=== PATIENT | female | born 1985 | race Caucasian/White ===

== ENCOUNTER → 2020-01-23 13:56 | Outpatient (BNVA) | payer OTHER, SELFPAY | PROVIDERS: Family Provider Family Medicine; PCP Nurse Practitioner; Visit Provider Specialist | DX: G47.33 Obstructive sleep apnea (adult) (pediatric) (principal); G43.909 Migraine, unspecified, not intractable, without status migrainosus | CPT/HCPCS: 99212 ==

== ENCOUNTER → 2020-05-29 15:36 | Outpatient (BNVA) | payer OTHER, SELFPAY | PROVIDERS: Family Provider Family Medicine; PCP Nurse Practitioner; Referring Provider Dermatology; Visit Provider Dermatology | DX: L40.9 Psoriasis, unspecified (principal); L72.0 Epidermal cyst | CPT/HCPCS: 99203 ==

== ENCOUNTER → 2021-01-06 11:04 | Outpatient (BNVA) | payer OTHER, SELFPAY | PROVIDERS: Family Provider Family Medicine; Visit Provider Specialist | DX: G43.909 Migraine, unspecified, not intractable, without status migrainosus (principal); G47.33 Obstructive sleep apnea (adult) (pediatric); G47.419 Narcolepsy without cataplexy | CPT/HCPCS: 99214 ==

== ENCOUNTER → 2021-04-13 08:03 | Outpatient (BNVA) | payer OTHER, SELFPAY | PROVIDERS: Family Provider Family Medicine; Visit Provider Specialist | DX: G47.419 Narcolepsy without cataplexy (principal); G47.33 Obstructive sleep apnea (adult) (pediatric); G43.019 Migraine without aura, intractable, without status migrainosus | CPT/HCPCS: 99213; 99214 ==

== ENCOUNTER 2021-09-18 14:06 | Outpatient (CLI) | payer OTHER, SELFPAY ==
--- NOTE | 2021-09-18 14:14 | MM_ITS ---
WS: [id number] BILATERAL DIGITAL SCREENING MAMMOGRAPHY WITH CAD CLINICAL INFORMATION: SCREENING HISTORY: Screening mammogram. No current complaints. COMPARISON: None. TECHNIQUE: Bilateral CC and MLO views. FINDINGS: Scattered fibroglandular densities bilaterally. No suspicious focal mass, asymmetry, calcifications, or architectural distortion. No evidence of malignancy. MM/[place] [id number] IMPRESSION: BI-RADS: 1-Negative FOLLOW UP: 1 Year Follow-up Recommend return to annual screening mammography.
== END 2021-09-18 14:07 | disposition home or self-care (01) ==
LOC: RADSHAW 14:12
PROVIDERS: PCP Registered Nurse; Visit Provider Registered Nurse
DX: Z12.31 Encounter for screening mammogram for malignant neoplasm of breast (principal)
CPT/HCPCS: 77067

== ENCOUNTER 2022-03-31 16:04 | Outpatient (CLI) | payer OTHER, SELFPAY ==
[2022-03-31 16:35] LABS: Basophils % 0.2 %; Eosinophils % 0.9 %; Hematocrit 30.8 % (37.0-47.0); Hemoglobin 8.8 g/dL (11.5-15.3); Lymphocytes # 1.8 10^3/uL (0.8-4.8); Lymphocytes % 42.2 %; Mean Corpuscular HGB Conc 28.6 g/dL (30.0-36.0); Mean Corpuscular Hemoglobin 20.6 pg (28.0-34.0); Mean Platelet Volume 10.9 fL (7.4-10.4); Monocytes # 0.3 10^3/uL (0.2-0.9); Monocytes % 6.2 %; Neutrophils # 2.13 10^3/uL (1.8-7.7); Neutrophils % 50.5 %; Nucleated Red Blood Cells % 0 %; Platelet Count 281 10^3/cmm (130-400); Red Blood Count 4.28 10^6/uL (4.1-5.3); Red Cell Distribution Width 17.5 % (12.1-15.1); White Blood Count 4.2 10^3/uL (4.0-10.0)
[2022-03-31 16:56] LABS: Alanine Aminotransferase 13 U/L (0-33); Albumin Level 4.2 g/dL (3.5-5.2); Alkaline Phosphatase 35 IU/L (35-105); Anion Gap 14.7 (5-19); Aspartate Amino Transferase 14 U/L (0-32); Blood Urea Nitrogen 7 mg/dL (6-20); Calcium 8.6 mg/dL (8.5-10.5); Carbon Dioxide 24 mmol/L (22-29); Chloride 105 mmol/L (98-107); Globulin 2.5 g/dL (1.3-4.6); Glomerular Filtration Rate 138.1 mL/min (90-130); Glucose 74 mg/dL (65-115); Osmolality Calculated 287 mOsm/kg (285-295); Potassium 3.7 mmol/L (3.5-5.1); Sodium 140 mmol/L (136-145); Total Bilirubin 0.2 mg/dL (0.15-1.2); Total Protein 6.7 g/dL (6.6-8.7)
[2022-03-31 17:04] LABS: HIV 1 & 2 Antibody Non-Reactive (Non-Reactiv); HIV 1 & 2 Antigen Non-Reactive (Non-Reactiv)
[2022-03-31 22:15] LABS: Hepatitis A Antibody IgM Non-Reactive (Nonreactive); Hepatitis B Core AB, Total Non-Reactive (Nonreactive); Hepatitis B Surface AB 46.3 (11.5-1000); Hepatitis B Surface Antigen Non-Reactive (Nonreactive); Hepatitis C Virus Antibody Non-Reactive (Nonreactive)
[2022-04-02 12:21] LABS: Quantiferon Mitogen >10.00 IU/mL; Quantiferon Nil 0.02 IU/mL; Quantiferon Plus TB1 <0.00 IU/mL; Quantiferon Plus TB2 <0.00 IU/mL; Quantiferon TB Gold NEGATIVE (NEGATIVE)
== END 2022-03-31 16:05 | disposition home or self-care (01) ==
PROVIDERS: PCP Registered Nurse; Visit Provider Dermatology
DX: L40.0 Psoriasis vulgaris (principal); L40.50 Arthropathic psoriasis, unspecified; Z79.899 Other long term (current) drug therapy
CPT/HCPCS: 36415; 80053; 85025; 86480; 86705; 86706; 86709; 86803; 87340; 87806

== ENCOUNTER 2022-08-24 04:56 | Outpatient (CLI) | payer OTHER, SELFPAY | END 2022-08-24 04:57 | disposition home or self-care (01) | LOC: SLEEP 08-25 04:58 | PROVIDERS: PCP Registered Nurse; Visit Provider Specialist | DX: G47.33 Obstructive sleep apnea (adult) (pediatric) (principal); G47.419 Narcolepsy without cataplexy | CPT/HCPCS: 95810 ==

== ENCOUNTER 2022-10-01 11:50 | Outpatient (CLI) | payer OTHER, SELFPAY ==
--- NOTE | 2022-10-01 12:12 | XR_ITS ---
WS: [id number] LUMBAR SPINE: 3 VIEWS TECHNIQUE: AP, lateral and L5-S1 spot. HISTORY: L SIDED SCIATICA COMPARISON: None available. Lumbar vertebra are normally aligned. Mild facet joint arthritis throughout the lumbar spine with hypertrophic osteophytes. No fractures. P edicles are all identified. SI joints are symmetric bilaterally. No soft tissue abnormalities. Surgical clips in the LEFT upper abdomen. XR/XR lumbar spine 2-3V* [id number] IMPRESSION: Mild diffuse lumbar spondylosis. No fracture.
== END 2022-10-01 11:51 | disposition home or self-care (01) ==
PROVIDERS: PCP Registered Nurse; Visit Provider Registered Nurse
DX: M54.32 Sciatica, left side (principal); M47.816 Spondylosis without myelopathy or radiculopathy, lumbar region
CPT/HCPCS: 72100

== ENCOUNTER 2022-12-03 13:21 | Outpatient (CLI) | payer OTHER, SELFPAY ==
--- NOTE | 2022-12-03 13:36 | MM_ITS ---
WS: [email or web address] BILATERAL 3D TOMOSYNTHESIS DIGITAL SCREENING MAMMOGRAPHY WITH CAD CLINICAL INFORMATION: SCREENING HISTORY: Screening mammogram. No current complaints. COMPARISON: 2021 TECHNIQUE: Bilateral CC and MLO views. FINDINGS: Scattered fibroglandular densities bilaterally. No suspicious focal mass, asymmetry, calcifications, or architectural distortion. 8 mm asymmetric density upper quadrant LEFT breast appears new from prev ious. This appears to be upper outer quadrant on the tomogram views. Recommend LEFT diagnostic mammog puneet spot compression views and ultrasound if persistent. MM/[place] [id number] IMPRESSION: BI-RADS: 0-Incomplete: Need additional imaging evaluation FOLLOW UP: Need Additional Imaging
== END 2022-12-03 13:22 | disposition home or self-care (01) ==
PROVIDERS: PCP Registered Nurse; Visit Provider Registered Nurse
DX: Z12.31 Encounter for screening mammogram for malignant neoplasm of breast (principal)
CPT/HCPCS: 77063; 77067

== ENCOUNTER 2022-12-24 09:50 | Outpatient (CLI) | payer OTHER, SELFPAY ==
--- NOTE | 2022-12-24 10:07 | MM_ITS ---
WS: [id number] BILATERAL 3D TOMOSYNTHESIS DIGITAL DIAGNOSTIC MAMMOGRAPHY WITH CAD CLINICAL INFORMATION: ABNORMAL MAMMO HISTORY: COMPARISON: 12/03/2022 and 09/18/2021 TECHNIQUE: Bilateral CC, MLO, and ML views. FINDINGS: Scattered fibroglandular densities bilaterally. Previously described asymmetric density in the LEFT b reast resolves today on the spot compression views consistent with overlapping tissue. No other suspi cious abnormalities. Recommend return to annual screening mammography. MM/[place] [id number] IMPRESSION: BI-RADS: 2-Benign FOLLOW UP: 1 Year Follow-up Recommend return to annual screening mammography.
== END 2022-12-24 09:51 | disposition home or self-care (01) ==
LOC: RAD 09:56
PROVIDERS: PCP Nurse Practitioner Family; Visit Provider Nurse Practitioner Family
DX: R92.8 Other abnormal and inconclusive findings on diagnostic imaging of breast (principal)
CPT/HCPCS: 77061; G0279

== ENCOUNTER 2023-01-07 08:42 | Outpatient (CLI) | payer OTHER, SELFPAY ==
--- NOTE | 2023-01-07 08:54 | MR_ITS ---
WS: [id number] MRI LUMBAR SPINE NONCONTRAST TECHNIQUE: Sagittal T1, T2 and STIR imaging. Axial T1 and T2 imaging. CLINICAL INFORMATION: PSORIATIC ARTHRITIS/CHRONIC L SIDED LOW BACK PAIN W/SCIATICA COMPARISON: None. FINDINGS: Mild lumbar curve. No acute compression. No high-grade central canal stenosis. Disc bulging worse L5- S1. L1-L2: Mild facet arthropathy. Spinal canal and foramen are patent. L2-L3: Mild facet arthropathy. L3-L4: Mild annular bulging. Slight effacement of ventral thecal sac. Mild facet arthropathy. Mild RI GHT and no significant LEFT foraminal narrowing. L4-L5: Mild annular bulging with slight effacement of ventral thecal sac. Slight narrowing of the LEF T subarticular recess. Mild facet arthropathy. Mild bilateral foraminal narrowing. L5-S1: Shallow central disc protrusion with impingement traversing S1 nerve roots bilaterally. Mild c entral canal stenosis. Moderate facet arthropathy. Mild RIGHT greater than LEFT foraminal narrowing. Visualized pelvic bony structures: Normal. Paravertebral soft tissues: Normal. MR/MR lumbar spine wo con* [id number] IMPRESSION: 1. Mild lumbar curve. No acute compression. 2. Shallow central disc protrusion L5-S1 impinges the traversing S1 nerve root s bilaterally with mild central canal stenosis. 3. Mild RIGHT greater than LEFT L5-S1 foraminal narrowing with slight impingem ent on the exiting L5 nerve roots. 4. Moderate facet arthropathy L4-L5 and L5-S1.
== END 2023-01-07 08:43 | disposition home or self-care (01) ==
PROVIDERS: PCP Nurse Practitioner Family; Visit Provider Nurse Practitioner Family
DX: L40.50 Arthropathic psoriasis, unspecified (principal); M54.42 Lumbago with sciatica, left side; G89.29 Other chronic pain; M43.8X6 Other specified deforming dorsopathies, lumbar region; M51.27 Other intervertebral disc displacement, lumbosacral region; M47.816 Spondylosis without myelopathy or radiculopathy, lumbar region
CPT/HCPCS: 72148

== ENCOUNTER 2023-04-11 15:44 | Outpatient (CLI) | payer OTHER, SELFPAY ==
--- NOTE | 2023-04-11 16:44 | XR_ITS ---
WS: [email or web address] XR foot LT 2V [id number] REASON FOR EXAM: M25.50 - Pain in unspecified joint FINDINGS: No fracture or focal bone lesion. No periosteal reaction or bone erosion. Joint spaces of the left foot are intact and well preserved. No soft tissue abnormality. IMPRESSION: No significant abnormality.
--- NOTE | 2023-04-11 16:44 | XR_ITS ---
WS: [email or web address] XR foot RT 2V [id number] REASON FOR EXAM: M25.50 - Pain in unspecified joint FINDINGS: No fracture or focal bone lesion. No periosteal reaction or bone erosion. Joint spaces of the right foot are intact and well preserved. No soft tissue abnormality. IMPRESSION: No significant abnormality.
--- NOTE | 2023-04-11 16:44 | XR_ITS ---
WS: [email or web address] XR hand RT 2V [id number] REASON FOR EXAM: L40.50 - Arthropathic psoriasis, unspecified FINDINGS: No fracture or focal bone lesion. No periosteal reaction or bone erosion. Joint spaces of the hand are intact and relatively well preserved. No soft tissue abnormality. IMPRESSION: No significant abnormality.
--- NOTE | 2023-04-11 16:44 | XR_ITS ---
WS: [email or web address] XR hand LT 2V [id number] REASON FOR EXAM: L40.50 - Arthropathic psoriasis, unspecified FINDINGS: No fracture or focal bone lesion. No periosteal reaction or bone erosion. The joint spaces of the left hand are intact and well preserved. No soft tissue abnormality. IMPRESSION: No significant abnormality.
== END 2023-04-11 15:45 | disposition home or self-care (01) ==
PROVIDERS: Absent Provider Nurse Practitioner Family; PCP Nurse Practitioner Family; Visit Provider Internal Medicine
DX: L40.50 Arthropathic psoriasis, unspecified (principal); M25.59 Pain in other specified joint
CPT/HCPCS: 73120; 73620

== ENCOUNTER 2023-04-12 15:04 | Outpatient (CLI) | payer OTHER, SELFPAY ==
[2023-04-12 16:23] LABS: Alanine Aminotransferase 13 U/L (0-33); Albumin Level 4.4 g/dL (3.5-5.2); Alkaline Phosphatase 33 U/L (35-105); Anion Gap 14.9 (5-19); Aspartate Amino Transferase 16 U/L (0-32); Blood Urea Nitrogen 6 mg/dL (6-20); Calcium 8.8 mg/dL (8.5-10.5); Carbon Dioxide 23 mmol/L (22-29); Chloride 104 mmol/L (98-107); Globulin 2.2 g/dL (1.3-4.6); Glomerular Filtration Rate 137.4 mL/min (90-130); Glucose 95 mg/dL (65-115); Osmolality Calculated 283 mOsm/kg (285-295); Potassium 3.9 mmol/L (3.5-5.1); Sodium 138 mmol/L (136-145); Total Bilirubin 0.2 mg/dL (0.15-1.2); Total Protein 6.6 g/dL (6.6-8.7)
[2023-04-12 16:29] LABS: Hepatitis B Surface Antigen Non-Reactive (Nonreactive)
[2023-04-12 16:31] LABS: Hepatitis C Virus Antibody Non-Reactive (Nonreactive)
[2023-04-12 16:39] LABS: Hepatitis B Core AB, Total Non-Reactive (Nonreactive); Hepatitis B Surface AB 57.3 (11.5-1000)
[2023-04-12 16:49] LABS: Basophils % 0.4 %; Eosinophils # 0.1 10^3/uL (0.0-0.8); Eosinophils % 2.4 %; Hematocrit 30.4 % (37.0-47.0); Hemoglobin 8.7 g/dL (11.5-15.3); Lymphocytes # 1.7 10^3/uL (0.8-4.8); Lymphocytes % 32.6 %; Mean Corpuscular HGB Conc 28.6 g/dL (30.0-36.0); Mean Corpuscular Hemoglobin 20.7 pg (28.0-34.0); Mean Corpuscular Volume 72.2 fl (81-99); Mean Platelet Volume 11.3 fL (7.4-10.4); Monocytes # 0.3 10^3/uL (0.2-0.9); Monocytes % 5.9 %; Neutrophils # 2.98 10^3/uL (1.8-7.7); Neutrophils % 58.5 %; Nucleated Red Blood Cells % 0 %; Platelet Count 263 10^3/cmm (130-400); Red Blood Count 4.21 10^6/uL (4.1-5.3); Red Cell Distribution Width 17.6 % (12.1-15.1); White Blood Count 5.1 10^3/uL (4.0-10.0)
[2023-04-12 16:52] LABS: Erythrocyte Sedimentation Rate 6 mm/hr (0-15)
[2023-04-13 12:55] LABS: CENTROMERE B ANTIBODY <1.0 NEG AI (<1.0 NEG); JO-1 ANTIBODY <1.0 NEG AI (<1.0 NEG); RNP ANTIBODY <1.0 NEG AI (<1.0 NEG); SCL-70 ANTIBODY <1.0 NEG AI (<1.0 NEG); SJOGREN'S ANTIBODY (SS-A) <1.0 NEG AI (<1.0 NEG); SM ANTIBODY <1.0 NEG AI (<1.0 NEG); SS-B <1.0 NEG AI (<1.0 NEG)
[2023-04-13 14:39] LABS: COMPLEMENT, TOTAL (CH50) >60 U/mL (31-60)
[2023-04-14 08:00] LABS: THYROID PEROXIDASE ANTIBODIES 3 IU/mL (<9)
[2023-04-14 11:25] LABS: ANA SCREEN, IFA POSITIVE (NEGATIVE); ANA TITER 1:40 titer; Anti-Nuclear AB Pattern #2 Nuclear, Speckled; Anti-Nuclear Antibody Titer #2 1:40 titer
[2023-04-14 12:41] LABS: COMPLEMENT COMPONENT C3C 139 mg/dL (83-193); COMPLEMENT COMPONENT C4C 12 mg/dL (15-57)
[2023-04-17 00:09] LABS: 14.3.3 ETA Protein <0.2 ng/mL (<0.2)
[2023-04-28 13:14] LABS: DNA AB (DS) CRITHIDIA,IFA NEGATIVE (NEGATIVE)
== END 2023-04-12 15:05 | disposition home or self-care (01) ==
LOC: LAB 15:08
PROVIDERS: PCP Nurse Practitioner Family; Referring Provider Nurse Practitioner Family; Visit Provider Internal Medicine
DX: L40.50 Arthropathic psoriasis, unspecified (principal); L40.0 Psoriasis vulgaris
CPT/HCPCS: 36415; 80053; 83520; 85025; 85651; 86140; 86160; 86162; 86235; 86255; 86376; 86704; 86706; 86803; 87340

== ENCOUNTER 2023-06-14 13:47 | Outpatient (CLI) | payer OTHER, SELFPAY ==
--- NOTE | 2023-06-14 13:54 | US_ITS ---
WS: [email or web address] US pelv w/transvag [id number] HISTORY: PELVIC PAIN IN FEMALE COMPARISON: None available. Uterus: 7.0 cm x 4.2 cm x 3.7 cm. Normal size retroverted uterus. No fibroid or mass identified. Endometrium: 0.3 cm. Normal. Right ovary: 2.0 cm x 1.6 cm x 2.3 cm. Normal size and vascularity, no cystic or solid masses. Left ovary: 3.5 cm x 3.2 cm x 2.4 cm. Simple LEFT ovarian cyst measures 3.1 x 2.9 x 2.5 cm. No solid component or septations. The adjacent LEFT ovary is normal. No free fluid in the cul-de-sac. IMPRESSION: 1. Simple LEFT ovarian cyst, (O-RADS 2). 2. Normal endometrium.
== END 2023-06-14 13:48 | disposition home or self-care (01) ==
LOC: RAD 13:49
PROVIDERS: PCP Nurse Practitioner Family; Visit Provider Nurse Practitioner Family
DX: R10.2 Pelvic and perineal pain (principal); N83.202 Unspecified ovarian cyst, left side
CPT/HCPCS: 76830; 76856

== ENCOUNTER 2023-08-11 07:07 | Outpatient (CLI) | payer OTHER, SELFPAY ==
[2023-08-16 10:20] LABS: Quantiferon Mitogen >10.00 IU/mL; Quantiferon Nil 0.01 IU/mL; Quantiferon TB Gold NEGATIVE (NEGATIVE)
== END 2023-08-11 07:08 | disposition home or self-care (01) ==
LOC: LAB 07:08
PROVIDERS: PCP Nurse Practitioner Family; Visit Provider Nurse Practitioner Family
DX: Z79.899 Other long term (current) drug therapy (principal)
CPT/HCPCS: 36415; 86480

== ENCOUNTER 2023-09-23 08:00 | Oncology outpatient (recurring) (ONCR) | payer OTHER, SELFPAY ==
--- OUTSIDE RECORDS SUMMARY | 2023-09-08 13:12 | XMS_ITS | Patient Health Record ---
Author Name Unknown Organization [facility] Address [address] [facility] [place] [address] Care Team Providers Care Development Specialist Name Role Phone Miguelito Austin Primary Care Provider ALLERGIES Allergen (clinical drug ingredient) Drug/Non Drug Allergy documented on EMR Reaction Allergy Type Onset Date Status Penicillin Unknown Drug Allergy Active RESULTS Component Value Reference Range Notes Vitamin B12 (B) 96795 Reviewed date:08/18/2023 05:40:13 PM Interpretation: Performing Lab: Notes/Report: Diagnosis Description: Iron deficiency anemia, unspecified [id number] 571 211-911 pg/mL Comprehensive Metabolic Pane l 74742 Reviewed date:08/18/2023 05:40:16 PM Interpretation: Performing Lab: Notes/Report: Diagnosis Description: Iron deficiency anemia, unspecified Glucose Serum 94 71-110 MG/DL Testing perfor med at [facility], [address] [place] [address], [place] [address]. CLIA ID#: [id number] BUN 10 7-21 MG/DL Creat .60 .51-1.17 MG/DL W-gdjppx-l-benzoquinone imine (NAPQI) is a metabolite of acetaminophen, NAPQI concentrations of apparoximately 10 mg/L correlation to toxic levels of acetaminophen demonstrates a greater than or equil to 10% change in results. NAPQI concentrations greater than this may lead to falsely depressed results for patient samples. Use of this assay is not recommended for patients undergoing treatment with phenindione, due to the potential for falsely depressed results. GFR 116.3 Calculation per formed from GFR calculator provided by the [employer]. Glomerular Filtration rate(GRF) is the best overall index of kidney function. Normal GFR varies according to age,sex, body size, and declines with age. The [employer] recommends using the CKD-EPI Creatinine Equation(2009) to estimate GFR. BUN/Creat Ratio 16.7 12.0-20.0 % Total Protein 6.8 5.8-8.0 G/DL Albumin 4.5 3.2-4.8 G/DL Globulin 2.2 2.3-3.5 G/DL Alb/Glob 2.0 0.8-2.2 Calcium 9.1 8.7-10.4 MG/DL Sodium 138 136-145 MMOL/L Potassium 3.9 3.5-5.1 MMOL/L Chloride 104 98-107 MMOL/L CO2 24.6 20.0-31.0 MMOL/L Anion Gap 13 5-15 Alk Phos 29 46-116 Bili Total .4 .3-1.2 MG/DL Use of this ass ay is not recommended for patients undergoing treatment with eltrombopag due to the potential for falsely elevated results. AST/SGOT 16 15-37 UNIT/L ALT/SGPT 14 12-78 UNIT/L Osmo Serum,Calculated 285 280-300 MOSM/KG CBC w\ Auto Diff [id number] Reviewed date:08/18/2023 05:40:24 PM Interpretation: Performing Lab: Notes/Report: Diagnosis Description: Iron deficiency anemia, unspecified WBC 5.1 4.5-11.0 X10'3 RBC 4.47 4.00-5.20 X10'6 Hgb 9.2 12.0-16.0 G/DL Hct 32.1 36.0-46.0 % MCV 71.8 80.0-100.0 FL MCH 20.6 27.0-31.0 PG MCHC 28.7 31.0-37.0 G/DL Platelet 268 150-400 X10'3 RDW-SD 46.7 35.0-49.0 FL RDW-CV 18.2 12.2-15.6 % MPV 12.0 9.2-12.0 FL Neutro Auto% 73.3 42.0-75.0 % Lymph Auto% 19.4 20.0-51.0 % Wright Auto% 5.3 1.7-9.3 % Eos Auto% 1.4 .0-6.0 % Baso Auto% 0.4 0.0-1.0 % Imm Gran% .2 .0-.4 % Neutro Abs 3.74 .80-7.70 Absolute Neutrophil Count 3740 Lymph Abs .99 .10-4.10 Wright Abs .27 .20-1.00 Eos Abs .07 .00-.40 Baso Abs .02 .00-.10 Imm Gran Abs .01 .00-.10 NRBC# .00 .00-.20 X10'3 NRBC% .00 .00-.20 /100 int act WBC's Occult Blood Immunoassay 822 74 Reviewed date:08/18/2023 05:50:52 PM Interpretation: Performing Lab: Notes/Report: Diagnosis Description: Iron deficiency anemia, unspecified Occult Blood Immunoassay Negative Control Occult Blood Valid Folate 57412 Reviewed date:08/18/2023 05:40:07 PM Interpretation: Performing Lab: Notes/Report: Diagnosis Description: Iron deficiency anemia, unspecified Folate 15.77 5.38-24.00 ng/mL Reference R chema: 5.38->24.00. Patient dosage up to or equal to 50 ng/ml of Biotin (vitamin B7) can potentially increase or decrease results of folate assay with a less than 10% bias. Concentrations of Biotin greater than 50ng/ml can potentially increase or decrease results of Folate assay with a greater than 10% bias. % Iron Saturation (Fe & TIBC )--65535,26013 Reviewed date:08/18/2023 05:40:10 PM Interpretation: Performing Lab: Notes/Report: Diagnosis Description: Iron deficiency anemia, unspecified Iron 15 50-170 MCG/DL Per Iron assay instruction for Use(IFU), patients treated with metal-binding drugs (e.g.deferoxamine) may have depressed iron values as chelated iron may not properly react in the iron assay. Testing was performed with this assay method. TIBC 432 250-450 NG/DL % Iron Saturation 3 20-50 % Immature PLT Fraction [id number] Reviewed date:08/18/2023 05:50:13 PM Interpretation: Performing Lab: Notes/Report: Immature PLT Fraction 7.7 1.6-4.9 % Platelet 268 150-400 X10'3 REASON FOR REFERRAL No Information MEDICATIONS Medication SIG (Take, Route, Frequency, Duration) Notes Start Date End Date Status Modafinil 200 MG 1 tablet in the morning Orally Once a day Active Vilazodone HCl 20 mg TAKE ONE-HALF TABLET BY MOUTH DAILY with food FOR THE first WEEK, AND THEN TAKE ONE TABLET BY MOUTH ONCE A DAY with food for 30 Active Norgestimate-Eth Estradiol 0.25-35 MG-MCG 1 tablet Orally Once a day Active Injectafer 750 MG/15ML as directed Intravenous weekly for 30 days Pt needs 3 doses of Injectafer infused weekly. 08/12/2023 Active Propranolol HCl 20 MG 1 tablet Orally Once a day Active SUMAtriptan Succinate 100 MG 1 tablet at least 2 hours between doses as needed Orally Twice a day Active Ixekizumab 80 MG/ML as directed Subcutaneous Not-Taking Baclofen 5 MG 1 tablet as needed Orally Once a day Active Calcipotriene 0.005 % 1 application Externally Twice a day Active Celecoxib 100 MG 1 capsule with food Orally Once a day Active Levocetirizine Dihydrochloride 5 MG 1 tablet in the evening Orally Once a day Active Meloxicam 15 MG 1 tablet Orally Once a day Active SOCIAL HISTORY Tobacco Use: Social History Observation Description Date Details (start date - stop date) Never Smoker NA - NA Sex Assigned At : Social History Observation Description Sex Assigned At Unknown Tobacco Use/Smoking Question Answer Notes Are you a nonsmoker Alcohol Screen (Audit-C) Question Answer Notes Did you have a drink containing alcohol in the p ast year? No Points 0 Interpretation Negative PROBLEMS Problem Type ICD Code Onset Dates Problem Status W/U Status Risk SNOMED Code Notes Problem Iron deficiency (E61.1) Active confirmed 54657103 Problem Moderate episode of recurrent major depressive disorder (F33.1) Active confirmed 643993866 Problem Microcytic anemia (D50.9) Active confirmed 689644394 Problem B12 deficiency (E53.8) Active confirmed 141635129 Problem Iron malabsorption (K90.9) Active confirmed 299170225 VITAL SIGNS Heart Rate 85 /min 08/12/2023 Temperature 99 degrees Fahrenheit 08/12/2023 Height-cm 165.1 cm 08/12/2023 Oximetry 99 % 08/12/2023 Blood pressure diastolic 60 mm Hg 08/12/2023 Weight-kg 68.76 kg 08/12/2023 Height 65 in 08/12/2023 Blood pressure systolic 110 mm Hg 08/12/2023 Weight 151.6 lbs 08/12/2023 BMI 25.22 kg/m2 08/12/2023 Encounters Encounter Location Date Provider Diagnosis [facility] [address] [place] [phone] 07/15/2023 [facility] [address] [place] [address] 08/25/2023 Miguelito Austin Microcytic anemia D50.9 [facility] [address] [place] [phone] 08/05/2023 Miguelito Austin Microcytic anemia D50.9 ; Iron deficiency E61.1 ; B12 deficiency E53.8 and Moderate episode of recurrent major depressive disorder F33.1 [facility] [address] [place] [phone] 08/12/2023 Miguelito Austin Iron malabsorption K90.9 [facility] [address] [place] [phone] 07/15/2023 Miguelito Austin Diarrhea, unspecifie d type R19.7 ASSESSMENTS Encounter Date Diagnosis Assessment Notes Treatment Notes Treatment Clinical Notes 07/15/2023 Diarrhea, unspecified type (ICD-10 - R19.7) This seems to be related to her biologic for her psoriasis. 08/05/2023 Iron deficiency (ICD-10 - E61.1) 08/05/2023 Microcytic anemia (ICD-10 - D50.9) 08/12/2023 Iron malabsorption (ICD-10 - K90.9) She needs IV iron. She is so profoundly low, she needs injectafer 750mg weekly times three. 08/25/2023 Microcytic anemia (ICD-10 - D50.9) 08/05/2023 B12 deficiency (ICD-10 - E53.8) 08/05/2023 Moderate episode of recurrent major depressive disorder (ICD-10 - F33.1) 08/05/2023 Other Venipuncture performed by Zabrina Carbajal. Left arm/hand. One attempt. Pt tolerated well, bleeding controlled with light dressing. Lab sent to [facility] via director regulatory agency. PLAN OF TREATMENT Next Appt Details Provider Name:Miguelito Austin, 09/23/2023 09:00:00 AM, [address] [place] [address], [phone], Insurance Providers Payer Name Payer Address Payer Phone Subscriber Number Group Number Insured Name Patient Relationship to Insured Coverage Start Date Coverage End Date [facility] [address] [place] SANCHEZ [phone] [id number] CHULA ASHLEY Self - patient is the insured MEDICAL (GENERAL) HISTORY Medical History History ICD Code MIGRAINES PSORIASIS Arthritis Sleep Disorder
--- OUTSIDE RECORDS SUMMARY | 2023-09-09 07:56 | XMS_ITS | Patient Health Record ---
Author Name Unknown Organization [facility] Address [address] [place] [address] Care Team Providers Care Flexo Folder Gluer Operator Name Role Phone Miguelito Austin Primary Care Provider ALLERGIES Allergen (clinical drug ingredient) Drug/Non Drug Allergy documented on EMR Reaction Allergy Type Onset Date Status Penicillin Unknown Drug Allergy Active RESULTS Component Value Reference Range Notes Immature PLT Fraction [id number] Reviewed date:08/18/2023 05:50:13 PM Interpretation: Performing Lab: Notes/Report: Immature PLT Fraction 7.7 1.6-4.9 % Platelet 268 150-400 X10'3 % Iron Saturation (Fe & TIBC )--24387,85241 Reviewed date:08/18/2023 05:40:10 PM Interpretation: Performing Lab: Notes/Report: Diagnosis Description: Iron deficiency anemia, unspecified Iron 15 50-170 MCG/DL Per Iron assay instruction for Use(IFU), patients treated with metal-binding drugs (e.g.deferoxamine) may have depressed iron values as chelated iron may not properly react in the iron assay. Testing was performed with this assay method. TIBC 432 250-450 NG/DL % Iron Saturation 3 20-50 % Folate 74290 Reviewed date:08/18/2023 05:40:07 PM Interpretation: Performing Lab: [...] assay with a greater than 10% bias. Occult Blood Immunoassay 822 74 Reviewed date:08/18/2023 05:50:52 PM Interpretation: Performing Lab: Notes/Report: Diagnosis Description: Iron deficiency anemia, unspecified Occult Blood Immunoassay Negative Control Occult Blood Valid CBC w\ Auto Diff 91384 Reviewed date:08/18/2023 05:40:24 PM Interpretation: Performing Lab: [...] 42.0-75.0 % Lymph Auto% 19.4 20.0-51.0 % Harvey Auto% 5.3 1.7-9.3 % Eos Auto% 1.4 .0-6.0 % Baso Auto% 0.4 0.0-1.0 % Imm Gran% .2 .0-.4 % Neutro Abs 3.74 .80-7.70 Absolute Neutrophil Count 3740 Lymph Abs .99 .10-4.10 Harvey Abs .27 .20-1.00 Eos Abs .07 .00-.40 Baso Abs .02 .00-.10 Imm Gran Abs .01 .00-.10 NRBC# .00 .00-.20 X10'3 NRBC% .00 .00-.20 /100 int act WBC's Comprehensive Metabolic Pane l 65628 Reviewed date:08/18/2023 05:40:16 PM Interpretation: Performing Lab: Notes/Report: Diagnosis Description: Iron deficiency anemia, unspecified Glucose Serum 94 71-110 MG/DL Testing perfor med at [facility], [address] [place] [address] [place] [address]. CLIA ID#: [id number] BUN 10 7-21 MG/DL Creat .60 .51-1.17 MG/DL L-wxarnd-j-benzoquinone imine (NAPQI) is a metabolite of acetaminophen, [...] 12-78 UNIT/L Osmo Serum,Calculated 285 280-300 MOSM/KG Vitamin B12 (B) 69126 Reviewed date:08/18/2023 05:40:13 PM Interpretation: Performing Lab: Notes/Report: Diagnosis Description: Iron deficiency anemia, unspecified [id number] 571 211-911 pg/mL REASON FOR REFERRAL No Information MEDICATIONS Medication [...] Status Risk SNOMED Code Notes Problem Iron malabsorption (K90.9) Active confirmed 189595722 Problem B12 deficiency (E53.8) Active confirmed 406221292 Problem Microcytic anemia (D50.9) Active confirmed 679414255 Problem Moderate episode of recurrent major depressive disorder (F33.1) Active confirmed 964721512 Problem Iron deficiency (E61.1) Active confirmed 97306698 VITAL SIGNS Heart Rate 85 /min 08/12/2023 Temperature 99 degrees Fahrenheit 08/12/2023 Height-cm 165.1 cm 08/12/2023 Oximetry 99 % 08/12/2023 Blood pressure diastolic 60 mm Hg 08/12/2023 Weight-kg 68.76 kg 08/12/2023 Height 65 in 08/12/2023 Blood pressure systolic 110 mm Hg 08/12/2023 Weight 151.6 lbs 08/12/2023 BMI 25.22 kg/m2 08/12/2023 Encounters Encounter Location Date Provider Diagnosis [facility] [address] [place] [phone] 07/15/2023 [facility] [address] [place] [address] 08/25/2023 Miguelito Austin Microcytic anemia D50.9 [facility] [address] [place] [phone] 08/05/2023 Miguelito Austin Microcytic anemia D50.9 ; Iron deficiency E61.1 ; B12 deficiency E53.8 and Moderate episode of recurrent major depressive disorder F33.1 [facility] [address] [place] [phone] 08/12/2023 Miguelito Austin Iron malabsorption K90.9 [facility] [address] [place] [phone] 07/15/2023 Miguelito Austin Diarrhea, unspecifie d type R19.7 ASSESSMENTS Encounter Date Diagnosis Assessment Notes Treatment Notes Treatment Clinical Notes 07/15/2023 Diarrhea, unspecified type (ICD-10 - R19.7) This seems to be related to her biologic for her psoriasis. 08/12/2023 Iron malabsorption (ICD-10 - K90.9) She needs IV iron. She is so profoundly low, she needs injectafer 750mg weekly times three. 08/25/2023 Microcytic anemia (ICD-10 - D50.9) 08/05/2023 Iron deficiency (ICD-10 - E61.1) 08/05/2023 Microcytic anemia (ICD-10 - D50.9) 08/05/2023 B12 deficiency (ICD-10 - E53.8) 08/05/2023 Moderate episode of recurrent major depressive disorder (ICD-10 - F33.1) 08/05/2023 Other Venipuncture performed by Zabrina Carbajal. Left arm/hand. One attempt. Pt tolerated well, bleeding controlled with light dressing. Lab sent to [facility] via evaluation advisor. PLAN OF TREATMENT Next Appt Details Provider Name:Miguelito Austin, 09/23/2023 09:00:00 AM, [address] [place] [address], [phone], Insurance Providers Payer Name Payer Address Payer Phone Subscriber Number Group Number Insured Name Patient Relationship to Insured Coverage Start Date Coverage End Date [facility] [address] [place] [id number] CHULA ASHLEY Self - patient is the insured MEDICAL (GENERAL) HISTORY Medical History History ICD Code MIGRAINES PSORIASIS Arthritis Sleep Disorder
[2023-09-09 08:15] VITALS: BP 122/79; PULSE 106; RESP 16; TEMP 36.6; O2SAT 98
[2023-09-09] MEDS: ferric carboxy (IVPB) 750 MG in sodium chloride 0.9% (100 ml) 100 ML 345 MG IV (08:18)
[2023-09-09] MEDS: sodium chloride 0.9% 250 ML 75 ML IV (08:18)
[2023-09-09 09:00] VITALS: BP 107/68; PULSE 80; RESP 16; TEMP 37.2; O2SAT 100
[2023-09-16 08:25] VITALS: BP 102/68; PULSE 81; RESP 16; TEMP 36.6; O2SAT 97
[2023-09-16 08:45] VITALS: BP 102/68; PULSE 80; RESP 16; TEMP 36.6; O2SAT 96
[2023-09-16] MEDS: ferric carboxy (IVPB) 750 MG in sodium chloride 0.9% (100 ml) 100 ML 345 MG IV (08:50)
[2023-09-23] MEDS: sodium chloride 0.9% 250 ML 50 ML IV (08:28)
[2023-09-23] MEDS: ferric carboxy (IVPB) 750 MG in sodium chloride 0.9% (100 ml) 100 ML 345 MG IV (08:30)
[2023-09-23 09:01] VITALS: BP 110/73; PULSE 67; RESP 16; O2SAT 100
== END 2023-10-05 23:59 | disposition home or self-care (01) ==
PROVIDERS: PCP Nurse Practitioner Family; Visit Provider Internal Medicine
DX: Z53.9 Procedure and treatment not carried out, unspecified reason (principal); E61.1 Iron deficiency
CPT/HCPCS: 96365; J1439; J7050

== ENCOUNTER 2024-03-23 09:20 | Outpatient (CLI) | payer OTHER, SELFPAY ==
--- NOTE | 2024-03-23 09:24 | MM_ITS ---
WS: [id number] Screening mammogram, tomosynthesis, 03/23/2024 Clinical data: Screening Comparison: 12/24/2022, 12/03/2022, 09/18/2021 Findings: No spiculated masses or clustered calcifications are seen. The breast parenchymal pattern shows fibroglandular tissue. No secondary signs of carcinoma are seen . MM/[place] [id number] Impression: 1. Negative bilateral mammograms unchanged 2. Recommend annual screening mammograms. BIRADS: 1 Follow up: 1 year
== END 2024-03-23 09:21 | disposition home or self-care (01) ==
LOC: RAD 09:20
PROVIDERS: PCP Internal Medicine; Visit Provider Nurse Practitioner Obstetrics & Gynecology
DX: Z12.31 Encounter for screening mammogram for malignant neoplasm of breast (principal); R92.323 Mammographic fibroglandular density, bilateral breasts
CPT/HCPCS: 77063; 77067

== ENCOUNTER → 2024-09-25 09:24 | Outpatient (BNVA) | payer OTHER, SELFPAY | PROVIDERS: PCP Internal Medicine; Visit Provider Physician Assistant | DX: M25.511 Pain in right shoulder | CPT/HCPCS: 73030 ==

== ENCOUNTER 2025-05-17 14:14 | Outpatient (CLI) | payer OTHER, SELFPAY ==
--- NOTE | 2025-05-17 14:30 | MR_ITS ---
WS: [id number] MRI BRAIN WITHOUT CONTRAST HISTORY: G43.711 - Chronic migraine without aura, intractable, wit... COMPARISON: None available. TECHNIQUE: Diffusion imaging, multiplanar T1, T2 and FLAIR imaging obtained. No evidence for acute infarct or hemorrhage. Tran-white matter differentiation is normal. No significant atrophy. There is an area of decreased signal on the diffusion imaging and the susceptibility imaging within the posterior RIGHT temporal lobe measuring 8 x 8 mm. No increased signal on the T1 sequence. Very subtle variable signal on the T2 sequence. Ventricles and extra-axial spaces are normal. No inferior displacement of cerebellar tonsils. The sella turcica and pituitary gland are unremarkable. Dural venous sinuses and marshall of Lopez demonstrate no abnormality on this unenhanced studies. Paranasal sinuses: Clear. Mastoid air cells: Normal. Calvarium and scalp: Intact. MR/MR head wo con* [id number] IMPRESSION: 1. No acute infarcts, edema or mass effect. 2. 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 Consider follow-up MRI brain with contrast to evaluate for other vascular anomalies. 3. No prior infarcts. 4. Normal hippocampal formations.
== END 2025-05-17 14:15 | disposition home or self-care (01) ==
PROVIDERS: PCP Internal Medicine; Visit Provider Specialist
DX: G43.711 Chronic migraine without aura, intractable, with status migrainosus (principal); G47.419 Narcolepsy without cataplexy; R76.8 Other specified abnormal immunological findings in serum
CPT/HCPCS: 36415; 70551; 86480

== ENCOUNTER 2025-06-03 10:00 | Outpatient (CLI) | payer OTHER, SELFPAY ==
--- NOTE | 2025-06-03 10:08 | MM_ITS ---
WS: [email or web address] BILATERAL SCREENING DIGITAL TOMOSYNTHESIS MAMMOGRAM WITH CAD HISTORY: SCREENING COMPARISON: 03/23/2024, 12/24/2022, 09/18/2021 Bilateral CC and MLO views with tomosynthesis and synthetic mammography submitted. Computer aided detection analyzed. Breast composition: There are scattered areas of fibroglandular density. No suspicious masses, microcalcifications or architectural distortion. Benign calcification in the posterior RIGHT breast. MM/MM scr BI tomosynthesis [id number] IMPRESSION: BI-RADS: 2 - Benign. FOLLOW UP: 1 Year Follow-up
== END 2025-06-03 10:01 | disposition home or self-care (01) ==
LOC: RAD 10:00
PROVIDERS: PCP Internal Medicine; Visit Provider Nurse Practitioner Obstetrics & Gynecology
DX: Z12.31 Encounter for screening mammogram for malignant neoplasm of breast (principal); R92.323 Mammographic fibroglandular density, bilateral breasts; R92.1 Mammographic calcification found on diagnostic imaging of breast
CPT/HCPCS: 77063; 77067

== ENCOUNTER 2025-08-19 15:31 | Outpatient (CLI) | payer OTHER, SELFPAY ==
--- NOTE | 2025-08-19 16:00 | MR_ITS ---
WS: [id number] MRI BRAIN WITH AND WITHOUT CONTRAST HISTORY: G93.9 - Disorder of brain, unspecified COMPARISON: 05/17/2025 TECHNIQUE: Multiplanar imaging performed through the brain with MultiHance 13 ml's IV. No acute infarcts are seen. Tran-white matter differentiation is well preserved. No prior infarcts. No significant volume loss or atrophy. Normal hippocampal formations. Susceptibility artifact in the posterior RIGHT temporal lobe measures 8.4 mm and is similar to the prior study. Tiny focus of increased signal on the T1 sequences. There is a tiny focus of enhancement. Suspect this is probably a small cavernous malformation. No additional vascular abnormalities. No add itional cavernous malformations or venous angiomas. Ventricles and extra-axial spaces are normal. Clivus and pituitary gland are normal. Visualized posterior fossa and brainstem are also normal. Postcontrast images are negative for masses or vascular malformations. Dural venous sinuses are normal. Paranasal sinuses: Well aerated with no significant disease. Mastoid air cells: Normal. Calvarium and scalp: Normal. MR/MR head wo/w con [id number] IMPRESSION: 1. Normal diffusion imaging. No acute infarct. 2. Reidentified is susceptibility focus in the posterior RIGHT temporal lobe m easuring 8.4 mm. On the postcontrast imaging there is slight central enhancemen t. Suspect this is probably a cavernous malformation. No additional vascular ma lformations or venous angiomas identified. 3. No enhancing mass. 4. Normal hippocampal formations.
[2025-08-19] MEDS: gadobenate dimeglumine 20 mL vial 13 ML IV (16:48)
== END 2025-08-19 15:32 | disposition home or self-care (01) ==
LOC: RAD 15:32
PROVIDERS: PCP Internal Medicine; Visit Provider Specialist
DX: G93.9 Disorder of brain, unspecified (principal)
CPT/HCPCS: 70553; A9577